=== PATIENT | female | born 1985 | race Caucasian/White ===

== ENCOUNTER 2017-02-11 13:48 | Emergency (ER) | payer OTHER | END 2017-02-11 14:57 | disposition home or self-care (01) | LOC: FER 13:48 | DX: K02.9 Dental caries, unspecified (principal); L01.00 Impetigo, unspecified; F17.210 Nicotine dependence, cigarettes, uncomplicated; Z88.1 Allergy status to other antibiotic agents | CPT/HCPCS: 99283 ==